=== PATIENT | male | born 1985 | race Caucasian/White ===

== ENCOUNTER → 2017-06-19 | Outpatient (CLI) | payer OTHER ==
--- NOTE | 2017-06-19 12:31 | RADIOLOGY REPORT (SQ) ---
EXAM DESCRIPTION: UGI SERIES COMPLETED DATE/TIME: 06/19/2017 8:30 am REASON FOR STUDY: VOMITING/HEARTBURN R11.11 VOMITING WITHOUT NAUSEA R12 HEARTBURN COMPARISON: None. TECHNIQUE: Under fluoroscopic guidance, patient ingested effervescent granules followed by thick and thin barium. Fluoroscopic spot images and routine radiographic images acquired and stored on PACS. 12 MM BARIUM TABLET GIVEN: Yes. No significant delay in passage. LIMITATIONS: None. FLUOROSCOPY TIME: FLUORO TIME: 0.7 minutes 13 fluoroscopy images saved to PACS. FINDINGS: NEUROMUSCULAR COORDINATION OF SWALLOW: Normal. No aspiration. ESOPHAGEAL MOTILITY: Normal peristalsis. No esophageal spasm. ESOPHAGEAL MUCOSA: Normal mucosa without masses or ulceration. GASTRO-ESOPHAGEAL JUNCTION: A small sliding hiatal hernia is identified. Moderate gastroesophageal r eflux is noted extending into the mid esophagus. STOMACH: Normal without masses or ulcerations. GASTRIC OUTLET: No delay in emptying. Normal pylorus. DUODENAL BULB: Normal distention. No spasm or ulceration. DUODENUM: Mucosa normal. No extrinsic masses or malrotation. PROXIMAL SMALL BOWEL: Mucosa normal. No extrinsic masses or malrotation. NON-GI TRACT STRUCTURES: No significant finding. OTHER: No other significant finding. IMPRESSION: 1. SMALL SLIDING HIATAL HERNIA. 2. MODERATE GASTROESOPHAGEAL REFLUX. COMMENT: Quality ID [id number]: Final reports for procedures using fluoroscopy that document radiation exp osure indices, or exposure time and number of fluorographic images (if radiation exposure indices are not available) TECHNICAL DOCUMENTATION: JOB ID: [id number] [employer]- All Rights Reserved Reading location - IP/workstation name: [email or web address]
== END ==
LOC: RAD 07:39
PROVIDERS: ATTEND Internal Medicine Gastroenterology
DX: R11.11 Vomiting without nausea (principal); R12 Heartburn; K21.9 Gastro-esophageal reflux disease without esophagitis; K44.9 Diaphragmatic hernia without obstruction or gangrene
CPT/HCPCS: 74247

== ENCOUNTER 2017-06-28 17:13 | Emergency (ER) | payer OTHER ==
--- NOTE | 2017-06-28 18:10 | ER Document Report ---
ED Medical Screen (RME) - General Chief Complaint: Shortness Of Breath Stated Complaint: WHEEZING Time Seen by Provider: 06/28/17 18:07 Notes: Patient had an EGD today. Apparently during the procedure patient had laryngeal spasm with postoperative wheezing. This is treated with nebulizers. Anesthesia was worried the patient may possibly have negative pressure pulmonary edema. Patient was then sent for an outpatient x-ray. Patient reports he was told that this showed "fluid on my lungs". Patient states he has had severe chills since being discharged. He states that his breathing however is improving. TRAVEL OUTSIDE OF THE [place] IN LAST 30 DAYS: No - Related Data Allergies/Adverse Reactions: No Known Allergies Allergy (Verified 06/28/17 17:20) Past Medical History - Social History Chew tobacco use (# tins/day): No Frequency of alcohol use: Rare Drug Abuse: None Renal/ Medical History: Denies: Hx Peritoneal Dialysis GI Medical History: Reports: Hx Hiatal Hernia Physical Exam - Vital signs Vitals: Temp Pulse Resp BP Pulse Ox 99.4 F 108 H 16 134/78 H 95 06/28/17 17:24 06/28/17 17:24 06/28/17 17:24 06/28/17 17:24 06/28/17 17:24 Course - Vital Signs Vital signs: Temp Pulse Resp BP Pulse Ox 99.4 F 108 H 16 134/78 H 95 06/28/17 17:24 06/28/17 17:24 06/28/17 17:24 06/28/17 17:24 06/28/17 17:24
[2017-06-28 18:44] LABS: ABSOLUTE MONOCYTES (AUTO) 1.3 10^3/uL (0.1-1.4); ABSOLUTE NEUT (AUTO) 15.9 10^3/uL (1.7-8.2); BASOPHILS % (AUTO) 0.1 % (0-2); HEMATOCRIT 46.1 % (37.9-51.0); HEMOGLOBIN 15.7 g/dL (13.5-17.0); LYMPHOCYTES % (AUTO) 5.7 % (13-45); MEAN CORPUSCULAR HEMOGLOBIN 30.1 pg (27.0-33.4); MEAN CORPUSCULAR HGB CONC 34.2 g/dL (32.0-36.0); MEAN CORPUSCULAR VOLUME 88 fl (80-97); MONOCYTES % (AUTO) 7.2 % (3-13); PLATELET COUNT 302 10^3/uL (150-450); RED BLOOD COUNT 5.23 10^6/uL (4.35-5.55); TOTAL CELLS COUNTED % (AUTO) 100 %; WHITE BLOOD COUNT 18.3 10^3/uL (4.0-10.5)
[2017-06-28 18:48] LABS: APPEARANCE,URINE CLEAR; BILIRUBIN,URINE NEGATIVE (NEGATIVE); COLOR,URINE YELLOW; GLUCOSE, URINE NEGATIVE (NEGATIVE); KETONES,URINE NEGATIVE (NEGATIVE); LEUKOCYTE ESTERASE,URINE NEGATIVE (NEGATIVE); NITRITE,URINE NEGATIVE (NEGATIVE); PROTEIN,URINE NEGATIVE (NEGATIVE); URINE SPECIFIC GRAVITY 1.019
--- NOTE | 2017-06-28 18:48 | RADIOLOGY REPORT (SQ) ---
EXAM DESCRIPTION: CHEST PA/LAT COMPLETED DATE/TIME: 06/28/2017 6:40 pm REASON FOR STUDY: sob COMPARISON: None. EXAM PARAMETERS: NUMBER OF VIEWS: two views TECHNIQUE: Digital Frontal and Lateral radiographic views of the chest acquired. RADIATION DOSE: NA LIMITATIONS: none FINDINGS: LUNGS AND PLEURA: Linear atelectasis/ scarring in the left lung. No focal infiltrates, ma sses or pneumothorax. No pleural effusion. MEDIASTINUM AND HILAR STRUCTURES: No masses or contour abnormalities. HEART AND VASCULAR STRUCTURES: Heart normal size. No evidence for failure. BONES: No acute findings. HARDWARE: None in the chest. OTHER: No other significant finding. IMPRESSION: NO SIGNIFICANT RADIOGRAPHIC FINDING IN THE CHEST. TECHNICAL DOCUMENTATION: JOB ID: [id number] [employer]- All Rights Reserved Reading location - IP/workstation name: [email or web address]
[2017-06-28 19:03] LABS: ALANINE AMINOTRANSFERASE 73 U/L (21-72); ALBUMIN 4.9 g/dL (3.5-5.0); ALKALINE PHOSPHATASE 72 U/L (38-126); ANION GAP 13 (5-19); ASPARTATE AMINO TRANSFERASE 42 U/L (17-59); BILIRUBIN,DIRECT 0.5 mg/dL (0.0-0.4); BILIRUBIN,TOTAL 1.4 mg/dL (0.2-1.3); BLOOD UREA NITROGEN 20 mg/dL (7-20); CALCIUM 9.8 mg/dL (8.4-10.2); CARBON DIOXIDE 26 mmol/L (22-30); CHLORIDE 104 mmol/L (98-107); GLUCOSE 96 mg/dL (75-110); POTASSIUM 4.5 mmol/L (3.6-5.0); SODIUM 143.4 mmol/L (137-145)
[2017-06-28] MEDS ORDERED: ALBUTEROL SULFATE HFA (90 MCG/PUFF) 8 GM MDI (1 MDI/ER DISP) IH ONE (20:33)
--- NOTE | 2017-06-28 20:35 | ER Document Report ---
ED General - General Chief Complaint: Shortness Of Breath Stated Complaint: WHEEZING Time Seen by Provider: 06/28/17 18:07 TRAVEL OUTSIDE OF THE [place] IN LAST 30 DAYS: No - HPI Patient complains to provider of: Shortness of breath Notes: Patient coming in for evaluation shortness of breath. Patient had a upper GI scope performed today according to patient had a complication there is no provided on chart patient apparently experienced a laryngeal spasm afterwards had shortness of breath and wheezing was sent for outpatient chest x-ray which showed edema and then was referred to the ER for further evaluation. Upon my evaluation patient states otherwise he just feels chills was prescribed Cipro and a very taken a dose of Cipro by the GI physician. Patient denies chest pain abdominal pain nausea vomiting fevers chills states no shortness of breath at this time. Resting comfortably no signs of toxemia or sepsis. - Related Data Allergies/Adverse Reactions: No Known Allergies Allergy (Verified 06/28/17 17:20) Past Medical History - Social History Smoking Status: Never Smoker Chew tobacco use (# tins/day): No Frequency of alcohol use: Rare Drug Abuse: None Family History: Reviewed & Not Pertinent Patient has suicidal ideation: No Patient has homicidal ideation: No Renal/ Medical History: Denies: Hx Peritoneal Dialysis GI Medical History: Reports: Hx Hiatal Hernia Review of Systems - Review of Systems Constitutional: No symptoms reported EENT: No symptoms reported Cardiovascular: No symptoms reported Respiratory: Short of breath Gastrointestinal: No symptoms reported Genitourinary: No symptoms reported Male Genitourinary: No symptoms reported Musculoskeletal: No symptoms reported Skin: No symptoms reported Hematologic/Lymphatic: No symptoms reported Neurological/Psychological: No symptoms reported -: Yes All other systems reviewed and negative Physical Exam - Vital signs Vitals: Temp Pulse Resp BP Pulse Ox 99.4 F 108 H 16 134/78 H 95 06/28/17 17:24 06/28/17 17:24 06/28/17 17:24 06/28/17 17:24 06/28/17 17:24 Interpretation: Normal - General General appearance: Appears well, Alert - HEENT Head: Normocephalic, Atraumatic Eyes: Normal Pupils: PERRL - Respiratory Respiratory status: No respiratory distress Chest status: Nontender Breath sounds: Normal Chest palpation: Normal - Cardiovascular Rhythm: Regular Heart sounds: Normal auscultation Murmur: No - Abdominal Inspection: Normal Distension: No distension Bowel sounds: Normal Tenderness: Nontender Organomegaly: No organomegaly - Back Back: Normal, Nontender - Extremities General upper extremity: Normal inspection, Nontender, Normal color, Normal ROM , Normal temperature General lower extremity: Normal inspection, Nontender, Normal color, Normal ROM , Normal temperature, Normal weight bearing. No: [place]'s sign - Neurological Neuro grossly intact: Yes Cognition: Normal Orientation: AAOx4 [place] Coma Scale Eye Opening: Spontaneous [place] Coma Scale Verbal: Oriented [place] Coma Scale Motor: Obeys Commands [place] Coma Scale Total: 15 Speech: Normal Motor strength normal: LUE, RUE, LLE, RLE Sensory: Normal - Psychological Associated symptoms: Normal affect, Normal mood - Skin Skin Temperature: Warm Skin Moisture: Dry Skin Color: Normal Course - Re-evaluation Re-evalutation: 06/28/17 22:59 Patient with leukocytosis however no fever here. Chest x-ray is also normal. No wheezing on examination I will discharge patient home with a albuterol inhaler for any wheezing that may occur at home otherwise vital signs been stable not requiring any oxygen patient will be discharged - Vital Signs Vital signs: Temp Pulse Resp BP Pulse Ox 99.4 F 108 H 16 122/65 94 06/28/17 17:24 06/28/17 17:24 06/28/17 17:24 06/28/17 20:02 06/28/17 20:02 - Laboratory Result Diagrams: 06/28/17 18:28 06/28/17 18:28 Laboratory results interpreted by me: 06/28/17 06/28/17 06/28/17 18:28 18:28 18:28 WBC 18.3 H Seg Neutrophils % 87.0 H Lymphocytes % 5.7 L Absolute Neutrophils 15.9 H Total Bilirubin 1.4 H Direct Bilirubin 0.5 H ALT 73 H Urine Urobilinogen 2.0 H Discharge - Discharge Clinical Impression: SOB (shortness of breath) Condition: Good Disposition: HOME, SELF-CARE Instructions: Dyspnea, Nonspecific ([facility]) Additional Instructions: Your chest x-ray here in ER does not show any significant pathology. I would continue on the Cipro as prescribed by your physician. I would use the inhaler that we gave you here in ER 2 puffs every 4 hours for the next 5 days. Follow- up with your physician in the next 24-48 hours return immediately to the ER or see her physician if you develop a fever temperature of her 101. Forms: Return to Work
[2017-06-28 20:45] VITALS: BP 122/65
== END 2017-06-28 20:45 | disposition home or self-care (01) ==
LOC: ER 17:13
DX: R06.02 Shortness of breath (principal); R06.2 Wheezing
CPT/HCPCS: 99285; 36415; 87040; 85025; 80053; 81001; 71046; J3490